=== PATIENT | male | born 1945 ===

== ENCOUNTER 2019-10-05 09:29 | Inpatient (IN) ==
[~2019-10-05 09:29] MED LIST: Buffered Lidocaine 1% SYRIN 1 ml INTRADERM ONE; Lactated Ringers 1000 ml BAG 1,000 ML IV SCH
[2019-10-05] MEDS ORDERED: ceFAZolin 2 GM PREMIX 2 GM/50 ML BAG ONE (09:50)
[2019-10-05] MEDS ORDERED: fentaNYL 100 mcg/2 ml 50 MCG/ML VIAL ONE (10:37)
[2019-10-05] MEDS ORDERED: Midazolam 2 mg/2 ml VIAL 1 mg/ml 2 ml VIAL (2 mg) ONE (11:31)
[2019-10-05] MEDS ORDERED: Phenylephrine 40 mcg/mL 10mL (400mcg) SYRINGE ONE (12:51)
[2019-10-05] MEDS ORDERED: EPHEDrine (Pressors) 50 MG/ML VIAL ONE (12:53)
[2019-10-05] MEDS ORDERED: diPHENhydraMINE 25 mg TAB PO PRN (14:40)
[2019-10-05] MEDS ORDERED: Ondansetron 4 mg VIAL 2 MG/ML 2 ml VIAL IV PRN (14:40)
[2019-10-05] MEDS ORDERED: Lactulose 30 ml UDC PO PRN (14:40)
[2019-10-05] MEDS ORDERED: Ondansetron ODT 4 mg TAB 4 MG TAB PO PRN (14:40)
[2019-10-05] MEDS ORDERED: Magnesium Hydroxide LIQ 30 ML UDC PO PRN (14:40)
[2019-10-05] MEDS ORDERED: diPHENhydraMINE IV 50 MG/ML 1 ml VIAL (BENADRYL) IV PRN (14:40)
[2019-10-05] MEDS ORDERED: Morphine 2 MG/ML SYRINGE IV PRN (14:40)
[2019-10-05] MEDS ORDERED: Morphine 4 MG/ML VIAL (1 ml) ONE (14:57)
[2019-10-05] MEDS ORDERED: Metoprolol Tartrate 5 mg VIAL 5 ml VIAL (1 mg/ml) ONE (16:16)
[2019-10-05] MEDS ORDERED: Metoprolol Tartrate 5 mg VIAL 5 ml VIAL (1 mg/ml) IV ONE ×2 (16:18→16:41)
[2019-10-05 16:55] LABS: ABS Lymphocytes 0.8 10^3/ul (1.0-4.8); ABS Monocytes 0.5 10^3/ul (0-0.8); ABS Neutrophils 15.2 10^3/ul (1.5-7.7); Eosinophil % 0.2 %; Hematocrit 39 % (42-52); Hemoglobin 13.4 g/dL (14.0-18.0); Lymphocyte % 5.1 %; Mean Corpuscular HGB Conc 34 g/dL (31-36); Mean Corpuscular Hemoglobin 32 pg (27-31); Mean Corpuscular Volume 94 fL (80-94); Mean Platelet Volume 8.7 fL (7.4-10.4); Platelet Count 195 10^3/uL (150-450); Red Cell Distribution Width 14 % (10-15); White Blood Count 16.7 10^3/uL (3.5-10.8)
[2019-10-05 17:07] LABS: BUN/Creatinine Ratio 20.9 (8-20); Calcium 9.1 mg/dL (8.6-10.3); EGFR African American 99.1 (>60); EGFR Non-African American 81.9 (>60); Potassium 3.9 mmol/L (3.5-5.0)
[2019-10-05 18:36] LABS: Albumin 4.1 g/dL (3.2-5.2); Albumin/Globulin Ratio 1.6 (1-3); Globulin 2.6 g/dL (2-4); Total Bilirubin 0.5 mg/dL (0.2-1.0); Total Protein 6.7 g/dL (6.4-8.9)
[2019-10-05] MEDS: Lactated Ringers 1000 ml BAG 1,000 ML IV SCH (18:42)
[2019-10-05 19:34] LABS: HDL Cholesterol 30.5 mg/dL
[2019-10-05] MEDS: oxyCODONE/Acetamin 5/325 mg TAB PO PRN (19:58)
[2019-10-05] MEDS: ceFAZolin 1 GM ADVAN 1 GM in NS 0.9% 50 ML 50 ML IVPB SCH (20:23)
[2019-10-05] MEDS: Magnesium Hydroxide LIQ 30 ML UDC PO SCH (20:37)
[2019-10-06] MEDS: Lactated Ringers 1000 ml BAG 1,000 ML IV SCH ×2 (00:06→10:27)
[2019-10-06] MEDS: oxyCODONE/Acetamin 5/325 mg TAB PO PRN (00:06)
[2019-10-06] MEDS: ceFAZolin 1 GM ADVAN 1 GM in NS 0.9% 50 ML 50 ML IVPB SCH ×2 (03:59→12:24)
[2019-10-06 05:33] LABS: Hematocrit 34 % (42-52); Hemoglobin 11.4 g/dL (14.0-18.0); Mean Corpuscular HGB Conc 34 g/dL (31-36); Mean Corpuscular Hemoglobin 32 pg (27-31); Mean Corpuscular Volume 95 fL (80-94); Mean Platelet Volume 8.8 fL (7.4-10.4); Platelet Count 150 10^3/uL (150-450); Red Blood Count 3.53 10^6 /uL (4.18-5.48); Red Cell Distribution Width 14 % (10-15); White Blood Count 13.8 10^3/uL (3.5-10.8)
[2019-10-06 05:34] LABS: ABS Monocytes 1.8 10^3/ul (0-0.8); Eosinophil % 0.1 %; Lymphocyte % 7.1 %
[2019-10-06 05:48] LABS: BUN/Creatinine Ratio 24.3 (8-20); Calcium 8.2 mg/dL (8.6-10.3); EGFR African American 134.1 (>60); EGFR Non-African American 110.9 (>60); Potassium 4.7 mmol/L (3.5-5.0)
[2019-10-06] MEDS: Vitamin THERAPEUTIC TAB PO SCH (09:14)
[2019-10-06] MEDS: Magnesium Hydroxide LIQ 30 ML UDC PO SCH ×2 (09:15→20:34)
[2019-10-06] MEDS: Timolol 0.5% OPTH.SOL BTL LEFT EYE SCH (10:27)
[2019-10-07 04:49] LABS: Hematocrit 31 % (42-52); Hemoglobin 10.7 g/dL (14.0-18.0); Mean Platelet Volume 8.9 fL (7.4-10.4); Platelet Count 163 10^3/uL (150-450)
[2019-10-07] MEDS: Timolol 0.5% OPTH.SOL BTL LEFT EYE SCH (08:36)
[2019-10-07] MEDS: Vitamin THERAPEUTIC TAB PO SCH (08:36)
[2019-10-07] MEDS: Magnesium Hydroxide LIQ 30 ML UDC PO SCH (09:34)
[2019-10-07 11:59] VITALS: BP 111/56
== END 2019-10-07 14:25 | disposition home or self-care (01) | DRG 301 ==
LOC: AA 09:29 → ICU 14:40 → SSU 10-06 15:01
PROVIDERS: ADMIT Orthopaedic Surgery Adult Reconstructive Orthopaedic Surgery; ATTEND Orthopaedic Surgery Adult Reconstructive Orthopaedic Surgery